=== PATIENT | female | born 1985 | race Asian ===

== ENCOUNTER 2017-09-23 10:31 | Emergency (ER) | payer OTHER ==
[~2017-09-23] VITALS: Ht 157.5 cm; Wt 49.1 kg
[2017-09-23 11:17] VITALS: BP 126/84
== END 2017-09-23 12:52 | disposition home or self-care (01) ==
LOC: EMS 10:33
DX: R07.0 Pain in throat (principal); R09.89 Other specified symptoms and signs involving the circulatory and respiratory systems
CPT/HCPCS: 70490; 99284